=== PATIENT | male | born 1960 | race Caucasian/White ===

== ENCOUNTER 2018-09-27 14:12 | Emergency (ER) | payer SELFPAY ==
[~2018-09-27] VITALS: Ht 177.8 cm; Wt 101.2 kg
[2018-09-27 14:15] VITALS: BP 135/84
--- NOTE | 2018-09-27 14:30 | NUR ---
PATIENT BROUGHT IN BY ALVAREZ ZAMORANO. NEEDS MEDICAL CLEARANCE FOR PREBOOK. PATIENT IN HAND CUFF BILAT. PATIENT AWAKE ALERT ORIENTED. CHRONIC LT. SHOULDER PAIN.
[2018-09-27 14:40] VITALS: BP 135/84
--- NOTE | 2018-09-27 14:42 | NUR ---
PATIENT OK TO BOOK BY [facility]
--- NOTE | 2018-09-27 14:42 | NUR ---
Patient discharged with v/s stable. Written and verbal after care instructions given and explained. Patient verbalized understanding. Police with in custody. All questions addressed prior to discharge. Advised to follow up with PMD.
== END 2018-09-27 14:42 ==
LOC: MED 14:12
DX: Z02.89 Encounter for other administrative examinations (principal); E11.9 Type 2 diabetes mellitus without complications; I10 Essential (primary) hypertension; Z88.0 Allergy status to penicillin
CPT/HCPCS: 99283